=== PATIENT | male | born 1990 | race Caucasian/White ===

== ENCOUNTER 2018-12-30 05:24 | Day surgery (SDC) | payer OTHER ==
[2018-12-30] VITALS (10 sets, daily range): BP systolic 91–118; BP diastolic 44–57; PULSE 55–96; RESP 16–33; Ht 157.5 cm; Wt 60.9 kg
[~2018-12-30] VITALS: Ht 157.5 cm; Wt 60.9 kg
[2018-12-30] MEDS ORDERED: CEFAZOLIN 1 GM/50 ML (PMX) 50 ML IVPB SCH (06:00)
[2018-12-30] MEDS ORDERED: SOD CHLORIDE 0.9% 1,000 ML IV ONE (06:00)
[2018-12-30] MEDS ORDERED: ASPI81TA52 PO (06:52)
[2018-12-30] MEDS ORDERED: ACETAMINOPHEN 500 MG TAB PO ONE (07:00)
--- NOTE | 2018-12-30 07:15 | PREAC ---
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 not on B-Radha Reported Medications Aspirin (Low Dose Aspirin) 81 Mg Tablet.dr, 81 MG PO DAILY, #30 TAB 12/30/18 Current Medications Cefazolin Sodium 50 ml @ 100 mls/hr PRE-OP IVPB ; Start 12/30/18 at 06:00; Stop 12/30/18 at 15:00 Sodium Chloride 1,000 ml @ 75 mls/hr [id number] ONCE IV ; Start 12/30/18 at 06:00; Stop 12/30/18 at 19:19 Meds reviewed: Yes Allergies Coded Allergies: latex (Verified Allergy, Unknown, 12/30/18) Allergies Reviewed: Yes Labs/Studies Labs Reviewed: Reviewed by anesthesiologist Result Diagram: 12/30/18 0600 Laboratory Tests 12/30/18 06:00 test: N/A (SR w/ PACs w/ aberrant conduction) Studies: ECG (sr w/ PACS) Pre-procedure Exam Last vitals Vital Signs Date Temp Pulse Resp B/P (MAP) Pulse Ox O2 O2 Flow FiO2 Time Delivery Rate 12/30/18 98.6 66 16 118/56 98 Room Air 06:39 (76) Airway: Adequate mouth opening, Adequate thyromental dist Mallampati: Mallampati II Teeth: Normal Lung: Normal Heart: Normal ASA Physical Status ASA physical status: 2 Emergency: None Planned Anesthetic General/MAC: MAC Pre-operative Attestations Prior to commencing anesthesia and surgery, the patient was re-evaluated, there was verification of: *The patient's identity *The results of appropriate recent lab work and preoperative vital signs *The above evaluation not changing prior to induction *Anesthetic plan, risk benefits, alternative and complications discussed with patient/family; questions answered; patient/family understands, accepts and wishes to proceed. MERNA RENAE Dec 30, 2018 07:15
[2018-12-30] MEDS ORDERED: LIDOCAINE 1% (MPF) 30 ML INJ ONE (07:19)
[2018-12-30] MEDS ORDERED: BUPIVACAINE 0.25% (MPF) 30 ML INJ ONE (07:19)
[2018-12-30] MEDS ORDERED: OXYCODONE/ACETAMINOPHEN (5/325) TAB PO PRN ×2 (07:30)
[2018-12-30] MEDS ORDERED: LABETALOL HCL 20MG INJ IV PRN (07:30)
[2018-12-30] MEDS ORDERED: ALBUTEROL 0.083% (NEB) 2.5 MG/3 ML AMP HHN PRN (07:30)
[2018-12-30] MEDS ORDERED: MEPERIDINE 25 MG INJ IV PRN (07:30)
[2018-12-30] MEDS ORDERED: PROPOFOL 40 ML ONE (07:30)
[2018-12-30] MEDS ORDERED: FENTAnyl 50 MCG/ML VIAL IV PRN ×2 (07:30)
[2018-12-30] MEDS ORDERED: ONDANSETRON 4 MG INJ IV PRN (07:30)
[2018-12-30] MEDS ORDERED: DIPHENHYDRAMINE 50 MG INJ IV PRN (07:30)
[2018-12-30] MEDS ORDERED: HYDROmorphONE 1 MG/5 ML IV SYRINGE IV PRN ×2 (07:30)
[2018-12-30] MEDS ORDERED: MIDAZOLAM 1 MG/ML 2 ML INJ ONE ×2 (07:32→08:16)
[2018-12-30] MEDS ORDERED: KETAMINE (50 MG/ML) 10 ML VIAL ONE (07:32)
[2018-12-30] MEDS ORDERED: GLYCOPYRROLATE 0.4 MG INJ ONE (07:32)
[2018-12-30] MEDS ORDERED: CEFAZOLIN 1 GM INJ ONE (07:32)
[2018-12-30] MEDS ORDERED: PHENYLephrine (100 MCG/ML) 5ML SYG ONE (08:31)
--- NOTE | 2018-12-30 09:08 | PAC ---
Date/Time of Note Date/Time of Note DATE: 12/30/18 TIME: 09:08 Post-Anesthesia Notes Post-Anesthesia Note Last documented vital signs Vital Signs Date Temp Pulse Resp B/P (MAP) Pulse Ox O2 O2 Flow FiO2 Time Delivery Rate 12/30/18 98.3 75 16 102/57 () 98 NC 4L 0903 Activity: WNL Respiratory function: WNL Cardiovascular function: WNL Mental status: Baseline Pain reasonably controlled: Yes Hydration appropriate: Yes Nausea/Vomiting absent: Yes MERNA RENAE Dec 30, 2018 09:08
--- NOTE | 2018-12-30 09:34 | OPR ---
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 Procedure Description Patient was laid prone on the operating room table and the gluteal and anal region were prepped and draped with Betadine solution. Upon examining his intergluteal cleft it was different than it appeared last during his office visit. It appears that the patient has had a perianal abscess that has been drained. The anoderm had a flap around the anus that was roughly 5 x 5 cm. This seem to communicate with the area of the pilonidal cysts. I therefore looked at the intergluteal cleft. 3 cyst sinuses were appreciated. These areas were all punch biopsied using the punch biopsy instrument and thereafter the hemostat clamps were used to excise all cysts and pets and hairs within the Haroldo s. Once this was done a total of 3 cysts were removed and a curette was placed into the area of the punch biopsies and used to excise and debride the sinus tract communicating the cysts as well as the inflamed tissue surrounding the cyst. I then instilled 100 cc of hydrogen peroxide for antisepsis and hemostasis. Thereafter I placed 3 g of Acell mixed with 1% lidocaine into the wound cavity and then placed a 6 layer sheet of a cell into the wound cavity to help with regeneration of tissue. Patient tolerated procedure well all instrument sponge and needle counts were correct. LIBRA BEAN Dec 30, 2018 09:34
--- NOTE | 2018-12-30 10:43 | NUR ---
THE PT ALERT AND ORIENTED VITAL SIGNS WITHIN NORMAL LIMITS, NO PAIN OR DISCOMFORT REPORTED D/C INSTRUCTIONS PROVIDED TO PT AND FAMILY, VERBALIZED UNDERSTANDING AND READINESS TO GO HOME INCISION SITE: [employer]CT
== END 2018-12-30 10:32 | disposition home or self-care (01) ==
LOC: SDS 05:24
PROVIDERS: ATTEND Surgery Surgical Critical Care
DX: L05.91 Pilonidal cyst without abscess (principal)
CPT/HCPCS: 11770; 80053; 85025; 85610; 85730; 88304; 93005; J0690; J2250; J2370; Q4118; Q4166